=== PATIENT | male | born 1965 | race Caucasian/White ===

== ENCOUNTER 2017-05-09 12:56 | Emergency (ER) | payer MEDICAID ==
[~2017-05-09] VITALS: Ht 177.8 cm; Wt 89.8 kg
[2017-05-09 19:48] VITALS: BP 124/91
== END 2017-05-09 19:55 | disposition home or self-care (01) ==
LOC: ED 19:54
DX: F10.220 Alcohol dependence with intoxication, uncomplicated (principal)
CPT/HCPCS: 93005; 99283

== ENCOUNTER 2018-07-04 10:01 | Observation (INO) | payer MEDICAID, OTHER ==
[~2018-07-04] VITALS: Ht 177.8 cm; Wt 81.9 kg
--- NOTE | 2018-07-04 10:17 | NUR ---
PT BIB [facility] FROM ASSISTED WITH REPRODUCIBLE CP WITH RECENT HX OF COUGH THAT STARTED EARLIER THIS AM. PT WAS GIVEN 324 ASA, 4 ZOFRAN, AND 1 NITRO SPOOL HAULER WITH MINIMAL RELIEF. BS WAS 103. PT HAS HX OF 4 TN'S. PT ON MONITOR. PAIN STILL 10/10. PT SEEMS DROWSY AND REPORTS NOT TAKING ANY OF HIS MEDS TODAY.
[2018-07-04] MEDS ORDERED: THIA100T27 PO (10:27)
[2018-07-04] MEDS ORDERED: LISI1TAB7 PO (10:27)
[2018-07-04] MEDS ORDERED: ARIP5TAB13 PO (10:27)
[2018-07-04] MEDS ORDERED: TRAZ-137 PO (10:27)
[2018-07-04] MEDS ORDERED: MULT-658 PO (10:27)
[2018-07-04] MEDS ORDERED: FOLI-17 PO (10:27)
[2018-07-04] MEDS ORDERED: LOPE2TAB28 PO (10:27)
[2018-07-04] MEDS ORDERED: ALUMINUM PO (10:27)
[2018-07-04] MEDS ORDERED: LEVE500T53 PO (10:27)
[2018-07-04] MEDS ORDERED: ONDA4TAB13 SL (10:27)
[2018-07-04] MEDS ORDERED: FLUO20CA8 PO (10:27)
--- NOTE | 2018-07-04 10:55 | NUR ---
BEDSIDE REPORT FROM LIDIA RN, PT RESTING IN [facility] ON MONITOR WITH OFFICERS AT BEDSIDE. AWIATING RAD AND LAB RESULTS, PT TBADM.
--- NOTE | 2018-07-04 10:58 | NUR ---
REPORT TO MANDI RODGERS.
[2018-07-04 11:01] LABS: BASOPHILS # (AUTO) 0.03 x10^3/uL (0-0.1); BASOPHILS % (AUTO) 1 % (0-1); EOSINOPHILS # (AUTO) 0.13 x10^3/uL (0-0.4); EOSINOPHILS % (AUTO) 2 % (1-7); LYMPHOCYTES # (AUTO) 2.36 x10^3/uL (1-3.4); LYMPHOCYTES % (AUTO) 35 % (22-44); MD NO; MEAN CORPUSCULAR HEMOGLOBIN 32.5 pg (27.5-34.5); MEAN CORPUSCULAR HGB CONC 33.4 g/dL (33.2-36.2); MEAN CORPUSCULAR VOLUME 97.2 fL (81-97); MEAN PLATELET VOLUME 7.2 fL (7.4-10.4); MONOCYTES # (AUTO) 0.61 x10^3/uL (0.2-0.8); MONOCYTES % (AUTO) 9 % (2-9); NEUTROPHILS # (AUTO) 3.54 x10^3/uL (1.8-6.8); NEUTROPHILS % (AUTO) 53 % (42-75); PLATELET COUNT 290 x10^3/uL (130-400); RED CELL DISTRIBUTION WIDTH 13.9 % (9.4-14.8)
[2018-07-04 11:11] LABS: ALANINE AMINOTRANSFERASE 24 U/L (12-78); ALBUMIN 3.4 g/dL (3.4-5.0); ANION GAP 4 mmol/L (5-15); CALCIUM 8.9 mg/dL (8.5-10.1); CHLORIDE 106 mmol/L (98-107)
[2018-07-04 11:16] LABS: ALKALINE PHOSPHATASE 90 U/L (45-117); BILIRUBIN,TOTAL 0.1 mg/dL (0.2-1.0); CREATININE 1.17 mg/dL (0.7-1.3); TOTAL PROTEIN 7.3 g/dL (6.4-8.2); TROPONIN I < 0.015 ng/mL (0.000-0.045)
--- NOTE | 2018-07-04 11:57 | NUR ---
PT RESTING IN [facility] ON MONITOR WITH GUARDS AT BEDSIDE, AWAITING TELE PLACEMENT
--- NOTE | 2018-07-04 13:04 | NUR ---
PT RESTING IN [facility] WITH GUARDS AT BEDSIDE, NAD, VSS, ON MONITOR. AWAITING TELE BED ASSIGNMENT
[2018-07-04] MEDS ORDERED: MAALOX/HYOSCYAMINE/LIDOCAINE 45 ML BTL PO PRN (13:30)
[2018-07-04] MEDS ORDERED: ACETAMINOPHEN 650 MG/20.3 ML UDC PO PRN (13:30)
[2018-07-04] MEDS ORDERED: NITROGLYCERIN SINGLE TAB 0.4 MG SL PRN (13:30)
[2018-07-04] MEDS ORDERED: ONDANSETRON 2MG/ML, 2ML IVP PRN (13:30)
[2018-07-04] MEDS ORDERED: morphine SULFATE 10 MG/ML, 1ML IV PRN (13:30)
[2018-07-04] MEDS: ENOXAPARIN 40 MG/0.4 ML SQ SCH (13:30)
[2018-07-04] MEDS ORDERED: NITROGLYCERIN 0.4 MG/SPRAY SL PRN (13:30)
[2018-07-04] MEDS ORDERED: NITROGLYCERIN 0.4 MG BOTTLE (25 TABS) SL PRN (13:30)
[2018-07-04] MEDS ORDERED: ENOXAPARIN 40 MG/0.4 ML ONE (14:08)
[2018-07-04 14:30] LABS: THYROID STIMULATING HORMONE 0.983 mIU/L (0.358-3.740)
--- NOTE | 2018-07-04 14:33 | NUR ---
REPORT TO MIAN RODGERS
[2018-07-04 15:24] VITALS: BP 120/76
[2018-07-04 17:36] LABS: TROPONIN I < 0.015 ng/mL (0.000-0.045)
[2018-07-04 20:00] VITALS: BP 102/67
[2018-07-04] MEDS: LEVETIRACETAM 500 MG TABLET PO SCH (21:15)
[2018-07-04] MEDS: ONDANSETRON ODT 4 MG SL SCH (21:15)
[2018-07-04] MEDS: ATORVASTATIN 20 MG TABLET PO SCH (21:15)
[2018-07-04] MEDS: FAMOTIDINE 20 MG TABLET PO SCH (21:15)
[2018-07-04] MEDS: TRAZODONE 100MG TABLET PO SCH (21:15)
[2018-07-04] MEDS: SODIUM CHLORIDE FLUSH 10ML SYR IVF SCH (21:16)
[2018-07-04 23:53] LABS: TROPONIN I < 0.015 ng/mL (0.000-0.045)
[2018-07-05 01:29] VITALS: BP 112/75
[2018-07-05 06:23] LABS: CHOL/HDL RATIO 3.6; LDL/HDL RATIO 1.9 (0.5-3.0)
[2018-07-05] MEDS: ASPIRIN 325 MG TABLET EC PO SCH (06:45)
[2018-07-05] MEDS ORDERED: REGADENOSON 0.4 MG/5 ML SYRINGE ONE (08:21)
[2018-07-05] MEDS: SODIUM CHLORIDE FLUSH 10ML SYR IVF SCH ×2 (08:24→20:12)
[2018-07-05] MEDS: FLUOXETINE HCL 20 MG CAPSULE PO SCH (08:24)
[2018-07-05] MEDS: FAMOTIDINE 20 MG TABLET PO SCH ×2 (08:24→20:11)
[2018-07-05] MEDS: LEVETIRACETAM 500 MG TABLET PO SCH ×2 (08:24→20:11)
[2018-07-05] MEDS: ARIPIPRAZOLE 5 MG TABLET PO SCH (08:24)
[2018-07-05 10:45] VITALS: BP 115/87
[2018-07-05] MEDS: LISINOPRIL 20 MG TABLET PO SCH (10:48)
[2018-07-05] MEDS: HYDROCHLOROTHIAZIDE 25 MG TABLET PO SCH (10:48)
[2018-07-05] MEDS: THIAMINE 100MG TABLET PO SCH (10:48)
[2018-07-05] MEDS: FOLIC ACID 1 MG TABLET PO SCH (10:48)
[2018-07-05] MEDS: MULTIVITAMIN 1 TABLET PO SCH (10:48)
[2018-07-05] MEDS: ONDANSETRON ODT 4 MG SL SCH ×2 (10:48→20:11)
[2018-07-05 11:50] VITALS: BP 132/75
[2018-07-05 13:25] VITALS: BP 103/67
[2018-07-05] MEDS: ENOXAPARIN 40 MG/0.4 ML SQ SCH (13:46)
[2018-07-05 19:30] VITALS: BP 109/65
[2018-07-05] MEDS: TRAZODONE 100MG TABLET PO SCH (20:11)
[2018-07-05] MEDS: ATORVASTATIN 20 MG TABLET PO SCH (20:11)
[2018-07-06 01:28] VITALS: BP 109/65
[2018-07-06] MEDS: ASPIRIN 325 MG TABLET EC PO SCH (05:07)
[2018-07-06 09:10] VITALS: BP 102/66
[2018-07-06] MEDS: FLUOXETINE HCL 20 MG CAPSULE PO SCH (09:11)
[2018-07-06] MEDS: LEVETIRACETAM 500 MG TABLET PO SCH (09:11)
[2018-07-06] MEDS: ARIPIPRAZOLE 5 MG TABLET PO SCH (09:11)
[2018-07-06] MEDS: SODIUM CHLORIDE FLUSH 10ML SYR IVF SCH (09:12)
[2018-07-06] MEDS: ONDANSETRON ODT 4 MG SL SCH (09:12)
[2018-07-06] MEDS: MULTIVITAMIN 1 TABLET PO SCH (09:12)
[2018-07-06] MEDS: FOLIC ACID 1 MG TABLET PO SCH (09:12)
[2018-07-06] MEDS: THIAMINE 100MG TABLET PO SCH (09:12)
[2018-07-06] MEDS: HYDROCHLOROTHIAZIDE 25 MG TABLET PO SCH (09:12)
[2018-07-06] MEDS: LISINOPRIL 20 MG TABLET PO SCH (09:12)
[2018-07-06] MEDS: FAMOTIDINE 20 MG TABLET PO SCH (09:12)
[2018-07-06] MEDS ORDERED: SPIR25TA PO (10:20)
[2018-07-06] MEDS ORDERED: FAMO20TA7 PO (10:20)
[2018-07-06] MEDS ORDERED: ATOR20TA37 PO (10:20)
[2018-07-06] MEDS ORDERED: CARV3.1212 PO (10:20)
[2018-07-06] MEDS ORDERED: LISI-170 PO (10:20)
[2018-07-06] MEDS ORDERED: Maalox/Hyoscyamine/Lidocaine PO (10:20)
[2018-07-06] MEDS ORDERED: FURO20TA3 PO (10:20)
[2018-07-06] MEDS ORDERED: ASPI-515 PO (10:20)
[2018-07-06] MEDS ORDERED: FUROSEMIDE 20 MG TABLET PO PRN (10:30)
[2018-07-06] MEDS ORDERED: CARVEDILOL 3.125 MG TABLET PO SCH (18:00)
[2018-07-07] MEDS ORDERED: ASPIRIN 81 MG TABLET CHEW PO SCH (06:00)
[2018-07-07] MEDS ORDERED: SPIRONOLACTONE 25 MG TABLET PO SCH (09:00)
[2018-07-07] MEDS ORDERED: LISINOPRIL 20 MG TABLET PO SCH (09:00)
== END 2018-07-06 15:30 | disposition home or self-care (01) ==
LOC: ED 11:17 → INTOOBSV 11:32 → EDIP 11:32 → 5SO 15:08
PROVIDERS: ADMIT Hospitalist; ATTEND Hospitalist
DX: R07.89 Other chest pain (principal); K21.9 Gastro-esophageal reflux disease without esophagitis; E78.5 Hyperlipidemia, unspecified; F17.200 Nicotine dependence, unspecified, uncomplicated; F32.9 Major depressive disorder, single episode, unspecified; G40.909 Epilepsy, unspecified, not intractable, without status epilepticus; G47.00 Insomnia, unspecified; I11.0 Hypertensive heart disease with heart failure; I50.42 Chronic combined systolic (congestive) and diastolic (congestive) heart failure; D75.89 Other specified diseases of blood and blood-forming organs; I25.10 Atherosclerotic heart disease of native coronary artery without angina pectoris; Z59.0 Homelessness; I25.2 Old myocardial infarction; Z83.3 Family history of diabetes mellitus; Z91.19 Patient's noncompliance with other medical treatment and regimen
CPT/HCPCS: 36415; 71045; 78452; 80053; 80061; 82607; 83690; 83880; 84443; 84484; 85025; 86677; 93005; 93017; 96372; 99284; A9502; C8929; C9898; G0378; J1650; J2785; Q0162; Q9957